=== PATIENT | male | born 1980 | race Caucasian/White ===

== ENCOUNTER 2023-03-17 12:34 | Day surgery (SDC) | payer OTHER ==
[~2023-03-17] VITALS: Ht 162.6 cm; Wt 106.2 kg
[~2023-03-17 12:34] MED LIST: Budeprion Xl300 MG PO
--- NOTE | 2023-03-17 13:03 | NUR ---
03/17/23 1303 Olinda Beaulieu TETRACAINE PLACED IN LEFT EYE AT 1252. PLEGET FOAM PLACED IN LEFT EYE AT 1254. PT TOLERATED WELL. CALL LIGHT IN REACH.
[2023-03-17 13:41] VITALS: BP 123/86
--- NOTE | 2023-03-17 13:52 | NUR ---
03/17/23 1352 CavendishKaterina carvajal IV REMOVED, SITE WNL
== END 2023-03-17 13:54 | disposition home or self-care (01) ==
LOC: ORSCSDS 12:34
PROVIDERS: Ophthalmology
PROC: 08DK3ZZ Extraction of Left Lens, Percutaneous Approach (ICD-10-PCS; principal; 2023-03-17 14:00)
DX: H25.12 Age-related nuclear cataract, left eye (principal); G47.33 Obstructive sleep apnea (adult) (pediatric); K21.9 Gastro-esophageal reflux disease without esophagitis; K76.0 Fatty (change of) liver, not elsewhere classified; E66.9 Obesity, unspecified; Z68.41 Body mass index [BMI] 40.0-44.9, adult
CPT/HCPCS: J1100; J2250; J2405; J3010; J3301; J7040; V2632